=== PATIENT | male | born 1980 | race Caucasian/White ===

== ENCOUNTER 2022-02-05 15:29 | Outpatient (REF) | payer BC, SELFPAY ==
[2022-02-05 17:57] LABS: Free T4 Free Thyroxine* 1.02 ng/dL (0.70-1.85)
== END 2022-02-05 15:30 | disposition home or self-care (01) ==
LOC: LAB 15:29
DX: E04.1 Nontoxic single thyroid nodule (principal)
CPT/HCPCS: 36415; 84439; 84443

== ENCOUNTER 2022-08-23 10:38 | Outpatient (CLI) | payer BC, SELFPAY | END 2022-08-23 10:39 | disposition home or self-care (01) | PROVIDERS: Visit Provider Family Medicine | DX: Z00.00 Encounter for general adult medical examination without abnormal findings (principal); E04.1 Nontoxic single thyroid nodule; N50.89 Other specified disorders of the male genital organs; D22.9 Melanocytic nevi, unspecified; Z13.6 Encounter for screening for cardiovascular disorders | CPT/HCPCS: 80048; 80061; 84439; 84443 ==

== ENCOUNTER 2022-08-26 14:37 | Outpatient (CLI) | payer BC, SELFPAY ==
--- NOTE | 2022-08-26 14:45 | CRLHL7_ITS ---
For Patients: As a result of the Century Cures Act, medical imaging exams and procedure reports are released immediately into your electronic medical record. You may view this report before your referring provider. If you have questions, please contact your health care provider. CLINICAL HISTORY: Right testicular lump TECHNIQUE: Simon scale imaging was performed of the scrotum. In addition color Doppler and spectral Doppler analysis was performed of the testes. FINDINGS: The right testis measures 5 x 2.7 x 1 centimeters the left testis measures 5.2 x 2.9 x 3.5 centimeters. No intratesticular mass seen. Normal blood flow to both testes. Small left hydrocele. Left scrotolith. Right epididymal cyst measuring 1 cm. IMPRESSION: 1. No intratesticular mass. Normal blood flow to both testes. Right 1 centimeter epididymal cyst. Dictated by Nikkie Escobar MD @ 08/27/2022 9:06:09 AM (Electronically Signed)
== END 2022-08-26 14:38 | disposition home or self-care (01) ==
LOC: US 14:38
PROVIDERS: PCP Family Medicine; Visit Provider Family Medicine
DX: N50.89 Other specified disorders of the male genital organs (principal)
CPT/HCPCS: 76870; 93976

== ENCOUNTER 2023-11-10 09:58 | Outpatient (CLI) | payer BC, SELFPAY | END 2023-11-10 09:59 | disposition home or self-care (01) | LOC: LKVREF 10:00 | PROVIDERS: PCP Family Medicine; Visit Provider Family Medicine | DX: E04.1 Nontoxic single thyroid nodule (principal); E78.00 Pure hypercholesterolemia, unspecified | CPT/HCPCS: 80061; 84443 ==

== ENCOUNTER 2024-11-11 08:57 | Outpatient (CLI) | payer BC, SELFPAY | END 2024-11-11 08:58 | disposition home or self-care (01) | LOC: LKVREF 08:58 | PROVIDERS: PCP Family Medicine; Visit Provider Family Medicine | DX: E04.1 Nontoxic single thyroid nodule (principal); E78.00 Pure hypercholesterolemia, unspecified; Z83.3 Family history of diabetes mellitus | CPT/HCPCS: 80061; 84443 ==